=== PATIENT | male | born 1970 | race Caucasian/White ===

== ENCOUNTER → 2016-07-10 | Outpatient (CLI) | payer OTHER ==
[~2016-07-10] MED LIST: GADOBUTROL 10 MMOL/10 ML VIAL IV ONE
--- NOTE | 2016-07-10 16:41 | RAD ---
PROCEDURE MR of the right knee with and without contrast HISTORY Swelling and lump below the patella. Patient had a laceration to the knee that result in an abscess which was drained. Persistent lump at the area of the abscess. COMPARISON None TECHNIQUE Standard routine multiplanar images before and after intravenous contrast FINDINGS There is soft tissue edema along the anterior knee. There is an irregular fluid signal collection located in the soft tissues anterior to the patellar tendon. This consists of multiple pockets which may or may not communicate. Altogether the collection measures 28 millimeters cephalocaudal by 28 millimeters wide by 18 millimeters AP. Some of these pockets demonstrate a thick hypointense margin which could represent hemosiderin from old blood products, or fibrosis. The underlying patellar tendon is intact. There is edema and enhancement within the infrapatellar fat. No bone lesion or acute fracture. No evidence of marrow edema. The study was not protocol for intra-articular examination of the knee. No obvious internal derangement is seen. There is mild subchondral cystic change at the femoral trochlea likely degenerative in etiology. There may be some associated mild chondromalacia. Only trace joint fluid. IMPRESSION There is a complex multi lobulated or multiloculated fluid subcutaneous fluid collection anterior to the patella tendon. Considerations include abscess or hematoma. There is soft tissue edema or inflammation within the surrounding subcutaneous fat and infrapatellar fat. Electronically signed by: Oral Jimenez MD (Jul 10, 2016 16:40:02)
== END | disposition home or self-care (01) ==
LOC: MRI 15:09
PROVIDERS: ATTEND Family Medicine
DX: L03.115 Cellulitis of right lower limb (principal)
CPT/HCPCS: 73723; A9585

== ENCOUNTER 2020-10-08 15:10 | Emergency (ER) | payer BC, OTHER ==
[~2020-10-08] VITALS: Ht 190.5 cm; Wt 100.0 kg
[2020-10-08] MEDS ORDERED: FLUORESCEIN OPHTH TEST STRIP. ONE (15:34)
[2020-10-08] MEDS ORDERED: TETRACAINE 0.5% OPHTH SOLUTION 4ML BOTTLE. ONE (15:34)
[2020-10-08] MEDS ORDERED: TETRACAINE 0.5% OPHTH SOLUTION 4ML BOTTLE. OD ONE (15:45)
[2020-10-08] MEDS ORDERED: FLUORESCEIN OPHTH TEST STRIP. OD ONE (15:45)
[2020-10-08] MEDS ORDERED: ERYTHROMYCIN 0.5% OPHTH OINTMENT 1GM TUBE. OD ONE (16:00)
[2020-10-08] MEDS ORDERED: DIPH,PERTUSS(ACELL),TET VAC/PF 0.5 ML SYRINGE. VAX IM ONE (16:00)
[2020-10-08] MEDS ORDERED: ERYT1OIN6 OD (16:23)
--- NOTE | 2020-10-08 16:24 | ED.ADGEN ---
Past Medical History Past Medical History: No Pertinent History Past Surgical History: No Surgical History Smoking Status: Current Every Day Smoker Alcohol Use: Occasionally Drug Use: None General Adult EDM: Chief Complaint: EYE PROBLEMS HPI: HPI: Patient is a 50 year old male who presents emergency department with reports of a injury to his right eye. 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 Patient is unsure when his last tetanus shot was. He states that a lot of blood came from his eye but it has since stopped. Patient denies any blurred vision, loss of vision, or pain with eye movements. He denies any dizziness, photosensitivity, or headache. Patient currently rates the pain a 3 out of 10 on the pain scale, he reports it feels like there is something in his eye. He denies the sensation of something sticking out of his eye. Review of Systems: Review of Systems: Complete ROS is negative unless otherwise noted in HPI. Current Medications: Current Medications Medications (Trade) Dose Ordered Sig/Bruna Start Time Stop Time Status Last Admin Dose Admin Diphtheria/ Tetanus/Acell Pertussis (ADACEL TDap SYRINGE) 0.5 ml ONCE ONCE 10/08/20 16:00 10/08/20 16:01 DC 10/08/20 15:38 0.5 ML Erythromycin (Romycin) 0.5 inch 1X ONCE 10/08/20 16:00 10/08/20 16:01 DC 10/08/20 16:28 0.5 INCH Fluorescein Sodium (Ful-Bryanna) 1 strip STK-MED ONCE 10/08/20 15:34 10/08/20 15:35 DC Tetracaine HCl (Tetracaine) 40 drop STK-MED ONCE 10/08/20 15:34 10/08/20 15:35 DC Allergies: Allergies: Allergies Coded Allergies Type Severity Reaction Last Updated Verified No Known Drug Allergies 07/10/16 No Physical Exam: PE: See Above Constitutional: Well developed, well nourished, no acute distress, non-toxic appearance. [] HENT: Normocephalic, atraumatic, bilateral external ears normal, oropharynx moist, no oral exudates, nose normal. [] Eyes: PERRLA, EOMI, L conjunctiva normal, subconjunctival hemorrhage of the medial right eye- see Wood's lamp evaluation, no discharge. [] Neck: Normal range of motion, no tenderness, supple, no stridor. [] Cardiovascular:Heart rate regular rhythm, no murmur [] Lungs & Thorax: Bilateral breath sounds clear to auscultation [] Skin: Warm, dry, no erythema, no rash. [] Back: No tenderness, no CVA tenderness. [] Extremities: No tenderness, no cyanosis, no clubbing, ROM intact, no edema. [] Neurologic: Alert and oriented X 3, normal motor function, normal sensory function, no focal deficits noted. [] Psychologic: Affect normal, judgement normal, mood normal. [] Current Patient Data: Vital Signs: Vital Signs Date Time Temp Pulse Resp B/P (MAP) Pulse Ox O2 Delivery O2 Flow Rate FiO2 10/08/20 16:31 65 18 162/100 (120) 95 Room Air 10/08/20 15:13 98.0 98.0 EKG: EKG: [] Heart Score: C/O Chest Pain: No Radiology/Procedures: Radiology/Procedures: Using tetracaine and fluroscein the patient's eye was examined under Wood's lamp and no area of uptake or Carolyn's sign was noted. Patient's ocular symptoms have stabilized while they have been evaluated in the department and are appropriate for outpatient work up. No evidence of ruptured globe, retinal detachment, acute angle closure glaucoma, or deep space infection. Course & Med Decision Making: Course & Med Decision Making Pertinent Labs and Imaging studies reviewed. (See chart for details) 1536- I spoke with Dr. Stuart about the patient. He recommends erythromycin ointment be prescribed. Follow up with the eye clinic for reevaluation. [id number]- I spoke with Jackelyn at eye clinic who will call pt to arrange follow up appointment. Amisha Disclaimer: Amisha Disclaimer: This electronic medical record was generated, in whole or in part, using a voice recognition dictation system. Departure Departure Impression: Primary Impression: Need for Tdap vaccination Additional Impressions: Penetrating eye injury of right eye Subconjunctival hemorrhage of right eye Disposition: HOME / SELF CARE / HOMELESS Condition: STABLE Referrals: SIDDHARHT GONZALEZ MD (PCP) Patient Instructions: Eye Injury-Brief, Subconjunctival Hemorrhage-Brief, VIS, Tetanus, Diphtheria (Td); Tetanus, Diphtheria, Pertussis (Tdap) - CDC Additional Instructions: Fill the prescription and take as directed. The [facility] will be calling you to arrange follow up appointment. Return to the ER if symptoms worsen, fever develops, or pain becomes severe. Scripts Erythromycin Base (Erythromycin) 1 Gm Oint...g. 0.5 INCH OD QID for 7 Days, #1 TUBE 0 Refills Prov: LUIGI WRIGHT APRN 10/08/20 Attending Signature Attending Signature I have reviewed the PA/PHARM TECH's note and plan of care. I was available for consultation as needed during the patient's visit in the emergency department. I agree with the clinical impression, plan, and disposition. Problem Qualifiers Additional Impressions: Penetrating eye injury of right eye Encounter type: initial encounter Qualified Codes: S05.61XA - Penetrating wound without foreign body of right eyeball, initial encounter LUIGI WRIGHT APRN Oct 08, 2020 16:24 SHANA KEN DO Oct 08, 2020 17:11
[2020-10-08 16:31] VITALS: BP 162/100
== END 2020-10-08 16:31 | disposition home or self-care (01) ==
LOC: ER 15:10
DX: S05.61XA Penetrating wound without foreign body of right eyeball, initial encounter (principal); H11.31 Conjunctival hemorrhage, right eye; F17.200 Nicotine dependence, unspecified, uncomplicated; X58.XXXA Exposure to other specified factors, initial encounter; Y93.89 Activity, other specified; Y92.89 Other specified places as the place of occurrence of the external cause; Y99.8 Other external cause status
CPT/HCPCS: 90471; 90715; 99283